=== PATIENT | male | born 1990 | race Caucasian/White ===

== ENCOUNTER 2018-04-12 12:03 | Emergency (ER) | END 2018-04-12 16:34 | disposition home or self-care (01) ==

== ENCOUNTER 2018-11-19 10:04 | Inpatient (IN) | payer OTHER ==
[~2018-11-19] VITALS: Ht 165.1 cm; Wt 71.4 kg
[2018-11-19] VITALS (12 sets, daily range): BP systolic 106–141; BP diastolic 60–82; PULSE 92–99; RESP 12–25; Ht 165.1 cm; Wt 71.4 kg
[~2018-11-19 10:04] MED LIST: HYDR-3980 PO; IBUP800T48 PO
[2018-11-19] MEDS ORDERED: morphine 4 MG/ML VIAL IV STA (12:05)
[2018-11-19] MEDS ORDERED: ONDANSETRON 4 MG INJ IV STA (12:13)
[2018-11-19] MEDS ORDERED: SOD CHLORIDE 0.9% 1,000 ML IV ONE (12:30)
[2018-11-19] MEDS ORDERED: metroNIDAZOLE 500 MG/NS (PMX) 100 ML IVPB ONE (13:00)
[2018-11-19] MEDS ORDERED: CEFTRIAXONE 1 GM/50 ML (PMX) 50 ML IVPB ONE (13:00)
--- NOTE | 2018-11-19 13:44 | ERD ---
ER Documentation Chief Complaint Chief Complaint RLQ abd pain, started today after going to the gym HPI History of Present Illness: 27-year-old male who denies a past medical history coming in today with complaint of right lower quadrant abdominal pain. Patient denies nausea/vomiting. Patient denies fever/chills. Patient reports decreased appetite and weakness. Patient reports he noticed that pain started after going to the gym this morning. Patient reports a bowel movement this morning but reports that the stool was hard and cause pain. Patient denies genitourinary symptoms. Patient is reports difficulty with walking due to pain. Patient that he had a pre-workout drink this morning at approximately 6 AM and that is the only thing that is different with his eating habits. At home pharmacological/nonpharmacological treatment for symptoms: Denies Denies social concerns; Denies recent foreign travel ROS All systems reviewed and are negative except as per history of present illness. Medications Home Meds Active Scripts Hydrocodone/Acetaminophen ([place] 10-325 Tablet) 1 Each Tablet, 1 TAB PO Q6H PRN for PAIN, #20 TAB Prov:LOULOU BENAVIDES PA-C 04/12/18 Ibuprofen* (Motrin*) 800 Mg Tab, 800 MG PO Q6, #30 TAB Prov:LOULOU BENAVIDES PA-C 04/12/18 Allergies Allergies: Coded Allergies: Penicillins (Verified Allergy, Intermediate, 04/12/18) PMhx/Soc Medical and Surgical Hx: pt denies Surgical Hx History of Surgery: No Anesthesia Reaction: No Hx Neurological Disorder: No Hx Respiratory Disorders: No Hx Cardiac Disorders: No Hx Psychiatric Problems: No Hx Miscellaneous Medical Probl: Yes (Chronic back problem) Hx Alcohol Use: Yes Hx Substance Use: Yes (MARIJUANA) Hx Tobacco Use: No Smoking Status: Never smoker FmHx Family History: diabetes; No coronary disease Physical Exam Vitals Vital Signs Date Temp Pulse Resp B/P (MAP) Pulse Ox O2 O2 Flow FiO2 Time Delivery Rate 11/19/18 99.1 97 20 136/72 97 10:41 (93) Physical Exam Const: No acute distress Head: Atraumatic Eyes: Normal Conjunctiva ENT: Normal External Ears, Nose and Mouth. Neck: Full range of motion. No meningismus. Resp: Clear to auscultation bilaterally Cardio: Regular rate and rhythm, no murmurs Abd: Soft, right lower quadrant tenderness, non distended. Normal bowel sounds. Positive McBurney's point. Skin: No petechiae or rashes Back: No midline or flank tenderness Ext: No cyanosis, or edema Neur: Awake and alert Psych: Normal Mood and Affect Result Diagram: 11/19/18 1148 11/19/18 1148 Results 24 hrs Laboratory Tests Test 11/19/18 11:48 White Blood Count 20.0 10^3/ul Red Blood Count 5.77 10^6/ul Hemoglobin 16.3 g/dl Hematocrit 49.1 % Mean Corpuscular Volume 85.1 fl Mean Corpuscular Hemoglobin 28.2 pg Mean Corpuscular Hemoglobin Concent 33.2 g/dl Red Cell Distribution Width 11.8 % Platelet Count 263 10^3/UL Mean Platelet Volume 10.1 fl Immature Granulocytes % 0.400 % Neutrophils % 88.2 % Lymphocytes % 5.4 % Monocytes % 5.8 % Eosinophils % 0.0 % Basophils % 0.2 % Nucleated Red Blood Cells % 0.0 /100WBC Immature Granulocytes # 0.070 10^3/ul Neutrophils # 17.6 10^3/ul Lymphocytes # 1.1 10^3/ul Monocytes # 1.2 10^3/ul Eosinophils # 0.0 10^3/ul Basophils # 0.0 10^3/ul Nucleated Red Blood Cells # 0.0 10^3/ul Urine Color STRAW Urine Clarity CLEAR Urine pH 6.0 Urine Specific [place] 1.017 Urine Ketones 2+ mg/dL Urine Nitrite NEGATIVE mg/dL Urine Bilirubin NEGATIVE mg/dL Urine Urobilinogen NEGATIVE mg/dL Urine Leukocyte Esterase NEGATIVE [place]/ul Urine Hemoglobin NEGATIVE mg/dL Urine Glucose NEGATIVE mg/dL Urine Total Protein NEGATIVE mg/dl Sodium Level 141 mmol/L Potassium Level 3.7 mmol/L Chloride Level 101 mmol/L Carbon Dioxide Level 23 mmol/L Anion Gap 17 Blood Urea Nitrogen 11 mg/dl Creatinine 0.80 mg/dl Est Glomerular Filtrat Rate mL/min > 60 mL/min Glucose Level 75 mg/dl Calcium Level 10.0 mg/dl Total Bilirubin 0.6 mg/dl Direct Bilirubin 0.00 mg/dl Indirect Bilirubin 0.6 mg/dl Aspartate Amino Transf (AST/SGOT) 31 IU/L Alanine Aminotransferase (ALT/SGPT) 34 IU/L Alkaline Phosphatase 86 IU/L Total Protein 8.8 g/dl Albumin 5.3 g/dl Globulin 3.50 g/dl Albumin/Globulin Ratio 1.51 Lipase 189 U/L Current Medications Medications Dose Sig/Lg Start Time Status Last (Trade) Ordered Route PRN Stop Time Admin Dose Reason Admin Sodium 1,000 ml @ Q1H ONCE 11/19/18 DC 11/19/18 Chloride 1,000 mls/hr IV 12:30 12:23 11/19/18 13:29 Morphine 4 mg ONCE STAT 11/19/18 DC 11/19/18 Sulfate IV 12:05 12:23 (morphine) 11/19/18 12:09 Ondansetron 4 mg ONCE STAT 11/19/18 DC 11/19/18 HCl (Zofran IV 12:13 12:23 Inj) 11/19/18 12:15 Ceftriaxone 50 ml @ ONCE ONCE 11/19/18 DC Sodium 100 mls/hr IVPB 13:00 11/19/18 13:29 100 ml @ ONCE ONCE 11/19/18 11/19/18 Metronidazole 100 mls/hr IVPB 13:00 13:22 11/19/18 13:59 Procedures/MDM ED course includes a thorough examination and history. Medications: Imaging: Abdomen KUB Labs: CBC, CMP, lipase, urinalysis ED course @ 1140: Due to low-grade fever and right lower quadrant pain. We will proceed forward with CT abdomen pelvis without contrast To rule out appendicitis. ED course at 1208: Due to leukocytosis and high likelihood of infection, will order IV NS, morphine for pain, Zofran for prophylactic for nausea Otherwise healthy patient presenting with constellation of symptoms likely representing appendicitis as characterized by history, physical exam findings, lab findings, radiology findings. CBC: Positive systemic infection signs, leukocytosis of 20k; No e/o of severe anemia. CMP: no e/o severe acidosis, alkalosis, renal failure, diabetic ketoacidosis, liver disease. Urinalysis negative for infection. Lipase within normal limits. CT abdomen pelvis results showing: IMPRESSION: 1. Acute appendicitis. Evaluation for abscess is limited secondary to absence of IV contrast. No definite abscess is identified. 2. Punctate nonobstructing calculus within the mid pole of the right kidney. RPTAT: .Nadine Rm MD, MD Date Time Electronically viewed and signed by .Nadine Rm MD, MD on 11/19/2018 12:29 Abdomen KUB without any acute findings. Signs of constipation on abdomen KUB. ED physician consultation at [address] TAMAYO: Updated ED attending physician on physical exam, history, lab findings, radiology findings. Agrees with plan of care for admission due to appendicitis. Orders placed by attending ED physician for antibiotics. Attending physician made aware of patient's allergy to penicillin which causes hives and swelling. Awaiting admission. ED attending will speak to admitting doctor/surgeon. Patient reassessment @ 1255: Patient reports decrease in pain after medication administration. No nausea/vomiting. Patient reports eating a boiled egg at approximately 10 AM, last drink during ER triage.Patient hemodynamically stable. No respiratory distress, otherwise relatively well appearing and nontoxic. Disposition given. Departure Diagnosis: Primary Impression: Appendicitis Appendicitis type: acute appendicitis Acute appendicitis type: unspecified acute appendicitis type Qualified Codes: K35.80 - Unspecified acute appendicitis Condition: Serious HERNANDO DONNELLY NP November 19, 2018 13:42
--- NOTE | 2018-11-19 14:46 | CONS ---
Assessment/Plan Assessment/Plan Hospital Course (Demo Recall) 1.Acute appendicitis: -OR -Antibiotics -N.p.o. 2. Abdominal pain: -Pain management 3. Leukocytosis: -As above 4.Right kidney nonobstructing calculus -Monitor Thank you. Patient seen and examined in collaboration with Dr. Tristian Espinosa. Consultation Date/Type/Reason Admit Date/Time Date of Consultation: November 19, 2018 Type of Consult Surgical Reason for Consultation Abdominal pain, concern for appendicitis Requesting Provider: HERNANDO DONNELLY NP Date/Time of Note DATE: 11/19/18 TIME: 14:38 Hx of Present Illness deana Carlos is a 27-year-old man without significant past medical history who presented with complaints of abdominal pain. Abdominal pain was predominantly in the right lower quadrant, dull and strong in nature. No precipitating factors. He does note however that pain has been recurrent that has resolved without intervention, however not to this severity. Associated symptoms include chills. Denies fevers, shortness of breath, chest pain, nausea, vomiting, diarrhea, seizure, rash, trauma to the area, recent sick contacts.CT of the abdomen shows distended appendix with wall hyperemia, periappendiceal inflammatory changes and fat stranding. Laboratory findings significant for leukocytosis. General surgery was asked to evaluate. 12 point review of systems was performed that is negative except as stated in HPI. Past Medical History Medical History: no pertinent history Home Meds Active Scripts Hydrocodone/Acetaminophen ([place] 10-325 Tablet) 1 Each Tablet, 1 TAB PO Q6H PRN for PAIN, #20 TAB Prov:LOULOU BENAVIDES PA-C 04/12/18 Ibuprofen* (Motrin*) 800 Mg Tab, 800 MG PO Q6, #30 TAB Prov:LOULOU BENAVIDES PA-C 04/12/18 Allergies: Coded Allergies: Penicillins (Verified Allergy, Intermediate, 04/12/18) Past Surgical History Past Surgical Hx: no surgical history Family History Significant Family History: no pertinent family hx Social History Alcohol Use: occasionally Smoking Status: Current some day smoker (Cannabis) Exam/Review of Systems Exam Vitals Vital Signs Date Temp Pulse Resp B/P (MAP) Pulse Ox O2 O2 Flow FiO2 Time Delivery Rate 11/19/18 98.4 95 20 114/56 97 Room Air 14:24 (75) Constitutional: alert, oriented Psych: nl mood/affect; No anxiety Head: normocephalic, atraumatic Eyes: nl conjunctiva, EOMI, nl lids, nl sclera ENMT: nl external ears & nose, nl lips & teeth, mucosa pink and moist Neck: supple, non-tender; No jvd Respiratory: normal air movement Cardiovascular: regular rate and rhythm Gastrointestinal: soft, distended (Minimal), tender (Right lower quadrant) Genitourinary - Male: nl penis, nl scrotum Musculoskeletal: nl extremities to inspection, nl gait and stance Extremities: normal pulses Neurological: nl mental status, nl speech, nl strength Skin: No rash or lesions Lymph: nl lymph nodes Results Result Diagram: 11/19/18 1148 11/19/18 1148 Results 24hrs Laboratory Tests Test 11/19/18 11:48 White Blood Count 20.0 H Red Blood Count 5.77 Hemoglobin 16.3 Hematocrit 49.1 Mean Corpuscular Volume 85.1 Mean Corpuscular Hemoglobin 28.2 L Mean Corpuscular Hemoglobin Concent 33.2 Red Cell Distribution Width 11.8 Platelet Count 263 Mean Platelet Volume 10.1 Immature Granulocytes % 0.400 Neutrophils % 88.2 H Lymphocytes % 5.4 L Monocytes % 5.8 Eosinophils % 0.0 Basophils % 0.2 Nucleated Red Blood Cells % 0.0 Immature Granulocytes # 0.070 H Neutrophils # 17.6 H Lymphocytes # 1.1 Monocytes # 1.2 H Eosinophils # 0.0 Basophils # 0.0 Nucleated Red Blood Cells # 0.0 Urine Color STRAW Urine Clarity CLEAR Urine pH 6.0 Urine Specific [place] 1.017 Urine Ketones 2+ H Urine Nitrite NEGATIVE Urine Bilirubin NEGATIVE Urine Urobilinogen NEGATIVE Urine Leukocyte Esterase NEGATIVE Urine Hemoglobin NEGATIVE Urine Glucose NEGATIVE Urine Total Protein NEGATIVE Sodium Level 141 Potassium Level 3.7 Chloride Level 101 Carbon Dioxide Level 23 Anion Gap 17 H Blood Urea Nitrogen 11 Creatinine 0.80 Est Glomerular Filtrat Rate mL/min > 60 Glucose Level 75 Calcium Level 10.0 Total Bilirubin 0.6 Direct Bilirubin 0.00 Indirect Bilirubin 0.6 Aspartate Amino Transf (AST/SGOT) 31 Alanine Aminotransferase (ALT/SGPT) 34 Alkaline Phosphatase 86 Total Protein 8.8 H Albumin 5.3 H Globulin 3.50 H Albumin/Globulin Ratio 1.51 Lipase 189 ANUP SIMON NP November 19, 2018 14:46
--- NOTE | 2018-11-19 15:55 | QN ---
Documentation Comment pt seen and examined MIRIAN BRUCE MD November 19, 2018 15:55
[2018-11-19] MEDS ORDERED: ONDANSETRON 4 MG INJ IV PRN ×2 (16:00→19:30)
[2018-11-19] MEDS: DEXTROSE 5%-0.45% NACL 1,000 ML IV SCH ×2 (16:20→22:40)
--- NOTE | 2018-11-19 19:07 | PREAC ---
Date/Time of Note Date/Time of Note DATE: 11/19/18 TIME: 18:58 Anesthesia Eval and Record Evaluation Time Pre-Procedure Interview DATE: 11/19/18 TIME: 18:58 Age 27 Sex male NPO: 8 hrs Preoperative diagnosis Acute Appendicitis Planned procedure Laparoscopic Appendectomy Past Medical History Past Medical History: Includes Recreational drugs: Marijuana Surgery & Anesthesia Issues No known issue Meds Anticoagulation: No Beta Yadi within 24 hr: No Reason Beta Yadi not given: Pt. not on B-Yadi Discontinued Scripts Hydrocodone/Acetaminophen ([place] 10-325 Tablet) 1 Each Tablet, 1 TAB PO Q6H PRN for PAIN, #20 TAB Prov:LOULOU BENAVIDES PA-C 04/12/18 Ibuprofen* (Motrin*) 800 Mg Tab, 800 MG PO Q6, #30 TAB Prov:LOULOU BENAVIDES PA-C 04/12/18 Current Medications Cefazolin Sodium/ Dextrose 50 ml @ 100 mls/hr Q8 IVPB ; Start 11/19/18 at 22:00 Metronidazole 100 ml @ 100 mls/hr Q8 IVPB ; Start 11/19/18 at 22:00 Dextrose/Sodium Chloride 1,000 ml @ 100 mls/hr Q10H IV Last administered on 11/19/18at 16:20; Admin Dose 100 MLS/HR; Start 11/19/18 at 16:00 Ondansetron HCl (Zofran Inj) 4 mg Q6H PRN IV NAUSEA/VOMITING; Start 11/19/18 at 16:00 Acetaminophen (Tylenol Tab) 650 mg Q6H PRN PO .PAIN 1-3 OR TEMP; Start 11/19/18 at 16:00 Morphine Sulfate (morphine) 2 mg Q4H PRN IV .SEVERE PAIN 7-10; Start 11/19/18 at 16:00 Pantoprazole (Protonix Iv) 40 mg DAILY@06 IV ; Start 11/20/18 at 06:00 Meds reviewed: Yes Allergies Coded Allergies: Penicillins (Verified Allergy, Intermediate, 11/19/18) Allergies Reviewed: Yes Labs/Studies Labs Reviewed: Reviewed by anesthesiologist Result Diagram: 11/19/18 1148 11/19/18 1148 Laboratory Tests 11/19/18 11:48 test: N/A Studies: ECG (n/a), CXR (n/a) Pre-procedure Exam Last vitals Vital Signs Date Temp Pulse Resp B/P (MAP) Pulse Ox O2 O2 Flow FiO2 Time Delivery Rate 11/19/18 98.4 95 20 114/56 97 Room Air 14:24 (75) Airway: Adequate mouth opening, Adequate thyromental dist Mallampati: Mallampati II Teeth: Normal Lung: Normal Heart: Normal ASA Physical Status ASA physical status: 2 Emergency: None Planned Anesthetic General/MAC: ETT Nerve block: TAP (bilateral) Planned Pain Management Single shot nerve block, Parenteral pain med Pre-operative Attestations Prior to commencing anesthesia and surgery, the patient was re-evaluated, there was verification of: *The patient's identity *The results of appropriate recent lab work and preoperative vital signs *The above evaluation not changing prior to induction *Anesthetic plan, risk benefits, alternative and complications discussed with patient/family; questions answered; patient/family understands, accepts and wishes to proceed. MIKHAIL TORRES MD November 19, 2018 19:07
[2018-11-19] MEDS ORDERED: PROPOFOL 20 ML ONE (19:26)
[2018-11-19] MEDS ORDERED: CEFAZOLIN 1 GM INJ ONE (19:26)
[2018-11-19] MEDS ORDERED: ROCURONIUM 50 MG INJ ONE (19:26)
[2018-11-19] MEDS ORDERED: FENTAnyl 50 MCG/ML VIAL ONE (19:27)
[2018-11-19] MEDS ORDERED: ROPIVACAINE 0.5 % 30 ML VIAL ONE (19:27)
[2018-11-19] MEDS ORDERED: MIDAZOLAM 1 MG/ML 2 ML INJ ONE (19:27)
[2018-11-19] MEDS ORDERED: ROPIVACAINE 0.2% 20 ML VIAL ONE (19:27)
[2018-11-19] MEDS ORDERED: DIPHENHYDRAMINE 50 MG INJ IV PRN (19:30)
[2018-11-19] MEDS ORDERED: FENTAnyl 50 MCG/ML VIAL IV PRN ×3 (19:30)
[2018-11-19] MEDS ORDERED: METOCLOPRAMIDE 10 MG INJ IV PRN (19:30)
[2018-11-19] MEDS ORDERED: EPHEDrine 25 MG/5 ML SYG IV PRN (19:30)
[2018-11-19] MEDS ORDERED: HYDROmorphONE 1 MG/5 ML IV SYRINGE IV PRN ×3 (19:30)
[2018-11-19] MEDS ORDERED: OXYCODONE/ACETAMINOPHEN (5/325) TAB PO PRN (19:30)
[2018-11-19] MEDS ORDERED: LABETALOL HCL 20MG INJ IV PRN (19:30)
[2018-11-19] MEDS ORDERED: MEPERIDINE 25 MG INJ IV PRN (19:30)
--- NOTE | 2018-11-19 19:59 | HP ---
DATE OF ADMISSION: 11/19/2018 REASON FOR ADMISSION: Abdominal pain. HISTORY OF PRESENTING ILLNESS: This is a 27-year-old man with no significant past medical history, w ho presented to the emergency department complaining of acute onset of right lower quadrant pain. Ac cording to the patient, he was not feeling usually his self; however, he went to gym in the morning, all of a sudden he started having pain in the right lower quadrant. The pain was getting severe and came to the emergency department. According to the patient, he has similar pain a few months ago. H e also complained of some chills. Denied any nausea, vomiting. The patient has been having poor debbie etite. Denied any diarrhea, any hematemesis, any melena, any blood per rectum. On arrival to ED, vi rashid signs showed blood pressure 114/56, afebrile, heart rate 95, respirations 20, saturating 97%. Wh ite count was 20.0, hemoglobin 16.3, platelet count 263. UA was negative. BMP within normal limit. The patient had abdominal x-ray that showed unremarkable. The patient had a CT of the abdomen and p molina that showed acute appendicitis IV contrast. Punctured nonobstructing calculus mid pole o f the right kidney and the patient received Rocephin, Flagyl, NS, and Zofran and was admitted for fur ther management. Dr. Espinosa has been called for surgery. PAST MEDICAL HISTORY: None. ALLERGIES: PENICILLINS. SOCIAL HISTORY: Occasionally uses marijuana and occasionally drinks alcohol. Denies smoking. FAMILY HISTORY: diabetes. No coronary artery disease. MEDICATIONS TAKING AT HOME: None. REVIEW OF SYSTEMS: The patient complained of right lower quadrant pain, decreased appetite, similar symptoms in the past. Denied any nausea, vomiting, diarrhea, hematemesis, any melena, any blood per rectum. Denies any focal neurological deficits. Denies any chest pain, any shortness of breath. PHYSICAL EXAMINATION: VITAL SIGNS: Currently, blood pressure 114/56, afebrile, heart rate 95, respirations 20, saturating 97%. GENERAL: The patient is awake, alert, oriented, does not appear to be in acute distress. HEENT: Pupils equal, round, reactive to light. NECK: Supple, no JVD. HEART: Regular rate and rhythm. LUNGS: Clear to auscultate bilaterally. ABDOMEN: Tenderness present. Negative McBurney's point. No peritoneal signs. EXTREMITIES: No clubbing, cyanosis, or edema. DIAGNOSTIC DATA: White count 20.0. BUN and creatinine within normal limit. CT of the abdomen and p molina, acute appendicitis. ASSESSMENT: This is a 27-year-old male, who presented with: 1. Right lower quadrant pain secondary to acute appendicitis. 2. Leukocytosis secondary to #1. 3. Right kidney, nonobstructing calculus. UA is negative. PLAN: At this period of time, the patient is kept n.p.o., started on IV fluids. The patient will be started on IV Ancef and Flagyl. The patient is going to OR per surgery. Rest of the treatment will depend on the patient's hospitalization course. Dictated By: MIRIAN WARD/ANNI Conf#: [id number] DID#: [id number]
[2018-11-19] MEDS ORDERED: BUPIVACAINE 0.25%/EPI (SDV) 30 ML INJ ONE (20:15)
[2018-11-19] MEDS ORDERED: LIDOCAINE 1% (MPF) 30 ML INJ ONE (20:15)
[2018-11-19] MEDS ORDERED: ONDANSETRON 4 MG INJ ONE (21:06)
[2018-11-19] MEDS ORDERED: METOCLOPRAMIDE 10 MG INJ ONE (21:06)
[2018-11-19] MEDS ORDERED: SUGAMMADEX SODIUM 200 MG/2 ML VIAL IV ONE (21:06)
[2018-11-19] MEDS ORDERED: DEXAMETHASONE 4 MG/ML 5 ML INJ ONE (21:06)
[2018-11-19] MEDS ORDERED: KETOROLAC 30 MG INJ ONE (21:06)
--- NOTE | 2018-11-19 21:16 | OPR ---
Date/Time of Note Date/Time of Note DATE: 11/19/18 TIME: 21:14 Operative Report Free Text/Dictation Preoperative Diagnosis 1. Acute appendicitis Postoperative Diagnosis 1. Acute appendicitis 2. Bilateral inguinal hernias Operation Performed 1. Laparoscopic appendectomy 2. Local anesthetic injection, [id number] Surgeon: SHANTI GARG MD Anesthesia: general (Plus local plus regional) Anesthesiologist: Enoc Wheeler MD Estimated Blood Loss: Less than 5 ml's Specimens: Appendix Tubes/Drains None Complications: None Pt Condition Post Procedure: stable Disposition: PACU Indications: Per consult note. Risks include but are not limited to bleeding, infection, abscess, seroma, leak, damage to intestines or any intra-abdominal/intrapelvic structures, hernia formation, chronic pain, need for re-operations or further surgeries, VT, stroke, PE, DVT, pneumonia, organ failures, or even . Procedure Note: Patient was brought into the operating room, placed supine on the operating table, SCDs were placed, left arm was tucked, all pressure points were well- padded, preoperative antibiotics administered, and after induction of anesthesia, patient was prepped and draped in usual sterile fashion, and timeout was performed. Incision was made supraumbilically and the Veress needle was safely place into the abdomen. After negative sip test, abdomen was insufflated to 15 mmHg with CO2. At this point Veress was removed and the 5 mm blunt trocar was placed into the abdomen. Laparoscopy was performed and no injuries were identified using a 5 mm 30 scope. Under direct visualization another 5 mm port was placed and left lower quadrant and 12 mm port and suprapubic region avoiding the bladder. All incision sites were injected with quarter percent Marcaine with 1% lidocaine with epi. Patient was placed in Trendelenburg and right side up. There is bilateral inguinal hernias. The appendix was found to be inflamed without evidence of perforation. The base was transected using Endo JOSE white load automatic 35 mm stapler just on the cecum. The fanny were fired fully. The mesoappendix was transected with another white load stapler. Hemostasis was fully obtained. The appendix was placed in an Endo Catch bag and removed through the suprapubic port site. That fascia was closed with Endo Close and 0 Vicryl in a [id number] manner avoiding the bladder. Ports and CO2 were removed under direct visualization, wounds were fully irrigated, and skin was closed in subcuticular fashion using 4-0 Monocryl. Dermabond was applied. All counts were correct and the end of the operation 2. Patient was extubated and transferred to recovery room in stable condition. SHANTI GARG MD November 19, 2018 21:16
--- NOTE | 2018-11-19 21:22 | PAC ---
Date/Time of Note Date/Time of Note DATE: 11/19/18 TIME: 21:22 Post-Anesthesia Notes Post-Anesthesia Note Last documented vital signs Vital Signs Date Temp Pulse Resp B/P (MAP) Pulse Ox O2 O2 Flow FiO2 Time Delivery Rate 11/19/18 98.7 95 20 114/56 97 Room Air 21:24 (75) Activity: WNL Respiratory function: WNL Cardiovascular function: WNL Mental status: Baseline Pain reasonably controlled: Yes Hydration appropriate: Yes Nausea/Vomiting absent: Yes MIKHAIL TORRES MD November 19, 2018 21:22
[2018-11-19] MEDS ORDERED: CEFAZOLIN 2 GM/50 ML (PMX) 50 ML IVPB SCH (22:00)
[2018-11-19] MEDS ORDERED: metroNIDAZOLE 500 MG/NS (PMX) 100 ML IVPB SCH (22:00)
[2018-11-19] MEDS: morphine 2 MG INJ IV PRN (23:39)
[2018-11-20 02:00] VITALS: BP 118/65; PULSE 83; RESP 20
[2018-11-20] MEDS: DEXTROSE 5%-0.45% NACL 1,000 ML IV SCH ×2 (02:00→09:23)
[2018-11-20] MEDS: morphine 2 MG INJ IV PRN (04:44)
[2018-11-20] MEDS ORDERED: PANTOPRAZOLE 40 MG INJ IV SCH (06:00)
[2018-11-20 07:42] VITALS: BP 120/68; PULSE 82; RESP 18
--- NOTE | 2018-11-20 09:57 | PN ---
Date/Time of Note Date/Time of Note DATE: 11/20/18 TIME: 09:56 Assessment/Plan VTE Prophylaxis SCD applied (from Nsg): Yes Pharmacological prophylaxis: NA/contraindicated Pharm contraindication: surgical contra Lines/Catheters IV C[facility] ([facility] Peripheral IV Assessment/Plan Hospital Course 1. Acute appendicitis. S/p appendectomy 11/19/2018 2. Leukocytosis secondary to #1, decreased 3. Right kidney, nonobstructing calculus. UA is negative. 4. Post op Bilateral inguinal hernias 5. Hyperkalemia Assessment/Plan medsurg -check K today, 4.4 no treatment necessary -c/w IV fluids. -c/w IV Ancef and Flagyl. dvt proph Ambulation and SCD -GI proph protonix -IS -ambulate -clear liq. diet per surgery dr Espinosa team Result Diagram: 11/20/186 11/20/186 Results 24hrs Laboratory Tests Test 11/19/18 11:48 11/19/18 15:45 11/20/18 04:36 White Blood Count 20.0 H 13.9 #H Red Blood Count 5.77 4.50 #L Hemoglobin 16.3 13.0 #L Hematocrit 49.1 39.2 #L Mean Corpuscular Volume 85.1 87.1 Mean Corpuscular Hemoglobin 28.2 L 28.9 L Mean Corpuscular Hemoglobin Concent 33.2 33.2 Red Cell Distribution Width 11.8 12.2 Platelet Count 263 262 Mean Platelet Volume 10.1 10.5 H Immature Granulocytes % 0.400 0.400 Neutrophils % 88.2 H 93.9 H Lymphocytes % 5.4 L 4.3 L Monocytes % 5.8 1.3 Eosinophils % 0.0 0.0 Basophils % 0.2 0.1 Nucleated Red Blood Cells % 0.0 0.0 Immature Granulocytes # 0.070 H 0.050 H Neutrophils # 17.6 H 13.1 H Lymphocytes # 1.1 0.6 L Monocytes # 1.2 H 0.2 L Eosinophils # 0.0 0.0 Basophils # 0.0 0.0 Nucleated Red Blood Cells # 0.0 0.0 Urine Color STRAW Urine Clarity CLEAR Urine pH 6.0 Urine Specific [place] 1.017 Urine Ketones 2+ H Urine Nitrite NEGATIVE Urine Bilirubin NEGATIVE Urine Urobilinogen NEGATIVE Urine Leukocyte Esterase NEGATIVE Urine Hemoglobin NEGATIVE Urine Glucose NEGATIVE Urine Total Protein NEGATIVE Sodium Level 141 136 Potassium Level 3.7 5.3 H Chloride Level 101 101 Carbon Dioxide Level 23 27 Anion Gap 17 H 8 # Blood Urea Nitrogen 11 9 Creatinine 0.80 0.77 Est Glomerular Filtrat Rate mL/min > 60 > 60 Glucose Level 75 162 Calcium Level 10.0 8.7 Total Bilirubin 0.6 Direct Bilirubin 0.00 Indirect Bilirubin 0.6 Aspartate Amino Transf (AST/SGOT) 31 Alanine Aminotransferase (ALT/SGPT) 34 Alkaline Phosphatase 86 Total Protein 8.8 H Albumin 5.3 H Globulin 3.50 H Albumin/Globulin Ratio 1.51 Lipase 189 Prothrombin Time 12.6 Prothrombin Time Ratio 1.0 INR International Normalized Ratio 0.93 Phosphorus Level 4.3 Magnesium Level 2.0 Subjective 24 Hr Interval Summary Gastrointestinal: pain Exam/Review of Systems Exam Vitals Vital Signs Date Temp Pulse Resp B/P (MAP) Pulse Ox O2 O2 Flow FiO2 Time Delivery Rate 11/20/18 98.5 82 18 120/68 96 Room Air 07:42 (85) 11/19/18 2.0 22:25 Intake and Output 11/19/18 11/19/18 11/20/18 1414:59 22:59 06:59 IntakeIntake Total 1100 ml 1350 ml 625 ml OutputOutput Total 10 ml 450 ml BalanceBalance 1100 ml 1340 ml 175 ml Constitutional: alert, oriented Respiratory: diminished breath sounds Cardiovascular: regular rate and rhythm Gastrointestinal: bowel sounds; No nl liver, spleen, No non-tender, No ascites, No distended, No firm, No hepatomegaly, No mass, No splenomegaly, No tender, No other Results Results 24hrs Laboratory Tests Test 11/19/18 11:48 11/19/18 15:45 11/20/18 04:36 White Blood Count 20.0 H 13.9 #H Red Blood Count 5.77 4.50 #L Hemoglobin 16.3 13.0 #L Hematocrit 49.1 39.2 #L Mean Corpuscular Volume 85.1 87.1 Mean Corpuscular Hemoglobin 28.2 L 28.9 L Mean Corpuscular Hemoglobin Concent 33.2 33.2 Red Cell Distribution Width 11.8 12.2 Platelet Count 263 262 Mean Platelet Volume 10.1 10.5 H Immature Granulocytes % 0.400 0.400 Neutrophils % 88.2 H 93.9 H Lymphocytes % 5.4 L 4.3 L Monocytes % 5.8 1.3 Eosinophils % 0.0 0.0 Basophils % 0.2 0.1 Nucleated Red Blood Cells % 0.0 0.0 Immature Granulocytes # 0.070 H 0.050 H Neutrophils # 17.6 H 13.1 H Lymphocytes # 1.1 0.6 L Monocytes # 1.2 H 0.2 L Eosinophils # 0.0 0.0 Basophils # 0.0 0.0 Nucleated Red Blood Cells # 0.0 0.0 Urine Color STRAW Urine Clarity CLEAR Urine pH 6.0 Urine Specific [place] 1.017 Urine Ketones 2+ H Urine Nitrite NEGATIVE Urine Bilirubin NEGATIVE Urine Urobilinogen NEGATIVE Urine Leukocyte Esterase NEGATIVE Urine Hemoglobin NEGATIVE Urine Glucose NEGATIVE Urine Total Protein NEGATIVE Sodium Level 141 136 Potassium Level 3.7 5.3 H Chloride Level 101 101 Carbon Dioxide Level 23 27 Anion Gap 17 H 8 # Blood Urea Nitrogen 11 9 Creatinine 0.80 0.77 Est Glomerular Filtrat Rate mL/min > 60 > 60 Glucose Level 75 162 Calcium Level 10.0 8.7 Total Bilirubin 0.6 Direct Bilirubin 0.00 Indirect Bilirubin 0.6 Aspartate Amino Transf (AST/SGOT) 31 Alanine Aminotransferase (ALT/SGPT) 34 Alkaline Phosphatase 86 Total Protein 8.8 H Albumin 5.3 H Globulin 3.50 H Albumin/Globulin Ratio 1.51 Lipase 189 Prothrombin Time 12.6 Prothrombin Time Ratio 1.0 INR International Normalized Ratio 0.93 Phosphorus Level 4.3 Magnesium Level 2.0 Medications Medication Current Medications Dextrose/Sodium Chloride 1,000 ml @ 100 mls/hr Q10H IV Last administered on 11/20/18at 09:23; Admin Dose 100 MLS/HR; Start 11/19/18 at 16:00 Ondansetron HCl (Zofran Inj) 4 mg Q6H PRN IV NAUSEA/VOMITING Last administered on 11/19/18at 23:38; Admin Dose 4 MG; Start 11/19/18 at 16:00 Acetaminophen (Tylenol Tab) 650 mg Q6H PRN PO .PAIN 1-3 OR TEMP; Start 11/19/18 at 16:00 Morphine Sulfate (morphine) 2 mg Q4H PRN IV .SEVERE PAIN 7-10 Last administered on 11/20/18at 04:44; Admin Dose 2 MG; Start 11/19/18 at 16:00 Pantoprazole (Protonix Iv) 40 mg DAILY@06 IV Last administered on 11/20/18at 06:15; Admin Dose 40 MG; Start 11/20/18 at 06:00 OSCAR WOOD November 20, 2018 09:57
[2018-11-20] MEDS: ACETAMINOPHEN 325 MG TAB PO PRN (11:39)
--- NOTE | 2018-11-20 13:52 | PN ---
Date/Time of Note Date/Time of Note DATE: 11/20/18 TIME: 13:49 Assessment/Plan Lines/Catheters IV Catheter Type (from Nrs): Peripheral IV Assessment/Plan Chief Complaint/Hosp Course 1.Acute appendicitis: sp lap appy -IS -ambulate -ice pack to abdominal wall -advance diet as tolerated -Continue antibiotics 2. Abdominal pain: -Pain management 3. Leukocytosis: Improving -As above 4.Right kidney nonobstructing calculus -Monitor Thank you. Patient seen and examined in collaboration with Dr. Tristian Espinosa. Subjective 24 Hr Interval Summary sp lap appy. No fevers, chills, sob, congested cough, cp, palpitations, torres, dizziness, n/v/d/dysuria. Exam/Review of Systems Vital Signs Vitals Vital Signs Date Temp Pulse Resp B/P (MAP) Pulse Ox O2 O2 Flow FiO2 Time Delivery Rate 11/20/18 98.5 82 18 120/68 96 Room Air 07:42 (85) 11/19/18 2.0 22:25 Intake and Output 11/19/18 11/19/18 11/20/18 1515:00 23:00 07:00 IntakeIntake Total 1100 ml 1350 ml 625 ml OutputOutput Total 10 ml 450 ml BalanceBalance 1100 ml 1340 ml 175 ml Exam Free Text/Dictation Constitutional: alert, oriented Psych: nl mood/affect; No anxiety Head: normocephalic, atraumatic Eyes: nl conjunctiva, EOMI, nl lids, nl sclera ENMT: nl external ears & nose, nl lips & teeth, mucosa pink and moist Neck: supple, non-tender; No jvd Respiratory: normal air movement Cardiovascular: regular rate and rhythm Gastrointestinal: soft, distended (Minimal), tender (Right lower quadrant) Genitourinary - Male: nl penis, nl scrotum Musculoskeletal: nl extremities to inspection, nl gait and stance Extremities: normal pulses Neurological: nl mental status, nl speech, nl strength Skin: No rash or lesions Lymph: nl lymph nodes Results Result Diagram: 11/20/18 0436 11/20/18 1008 ANUP SIMON NP November 20, 2018 13:52
[2018-11-20 14:55] VITALS: BP 134/71; PULSE 85; RESP 18
[2018-11-20 20:00] VITALS: BP 102/57; PULSE 86; RESP 19
--- NOTE | 2018-11-20 21:48 | RADRPT ---
Vent Rate: 76 bpm RR Interval: 784 msec GA Interval: 145 msec QRS Duration: 99 msec QT Interval: 357 msec QTC Interval: 403 msec P-R-T [place]: 26 - 78 - 45 degrees Sinus rhythm...normal P axis, V-rate 50- 99 ST elevation suggests acute pericarditis...ST >0.10mV, ant/lat/inf Electronically Signed By: Phan Hooks
[2018-11-21 02:12] VITALS: BP 104/68; PULSE 85; RESP 18
[2018-11-21] MEDS: ACETAMINOPHEN 325 MG TAB PO PRN (02:52)
[2018-11-21] MEDS: DEXTROSE 5%-0.45% NACL 1,000 ML IV SCH ×2 (03:51→09:26)
[2018-11-21] MEDS: PANTOPRAZOLE (EC) 40 MG TAB PO SCH ×2 (05:37→09:26)
[2018-11-21 07:57] VITALS: BP 100/59; PULSE 86; RESP 18
--- NOTE | 2018-11-21 10:37 | PDOCDIS ---
Discharge Instructions DIAGNOSIS Discharge Diagnosis s/p appendectomy CONDITION [id number] Patient Condition: [id number] Stable HOME CARE INSTRUCTIONS: Rypye6Mg Diet Instructions: Gwriu3m Regular ACTIVITY: [id number] Activity Restrictions: [id number] Rest between Activity Avoid heavy lifting Do not Drive Do not operate Power Tool [id number] Bathing Restrictions: [id number] Sponge Bath FOLLOW UP/APPOINTMENTS Follow-up Plan PCP 1 week OSCAR WOOD November 21, 2018 10:37
--- NOTE | 2018-11-21 10:37 | DS ---
Date/Time of Note Date/Time of Note DATE: 11/21/18 TIME: 10:37 Discharge Summary Admission/Discharge Info Admit Date/Time November 19, 2018 at 13:09 Discharge Date/Time Discharge Diagnosis s/p appendectomy Patient Condition: Stable Consults Dr. espinosa, surgeon Procedures appendectomy Hospital Course HISTORY OF PRESENTING ILLNESS: This is a 27-year-old man with no significant past medical history, who presented to the emergency department complaining of acute onset of right lower quadrant pain. According to the patient, he was not feeling usually his self; however, he went to gym in the morning, all of a sudden he started having pain in the right lower quadrant. The pain was getting severe and came to the emergency department. According to the patient, he has similar pain a few months ago. He also complained of some chills. Denied any nausea, vomiting. The patient has been having poor appetite. Denied any diarrhea, any hematemesis, any melena, any blood per rectum. On arrival to ED, vital signs showed blood pressure 114/56, afebrile, heart rate 95, respirations 20, saturating 97%. White count was 20.0, hemoglobin 16.3, platelet count 263. UA was negative. BMP within normal limit. The patient had abdominal x-ray that showed unremarkable. The patient had a CT of the abdomen and pelvis that showed acute appendicitis. Punctured nonobstructing calculus mid pole of the right kidney and the patient received Rocephin, Flagyl, NS, and Zofran and was admitted for further management. Dr. Espinosa has been called for surgery. PAST MEDICAL HISTORY: None. ALLERGIES: PENICILLINS. SOCIAL HISTORY: Occasionally uses marijuana and occasionally drinks alcohol. Denies smoking. FAMILY HISTORY: diabetes. No coronary artery disease. MEDICATIONS TAKING AT HOME: None. REVIEW OF SYSTEMS: The patient complained of right lower quadrant pain, decreased appetite, similar symptoms in the past. Denied any nausea, vomiting, diarrhea, hematemesis, any melena, any blood per rectum. Denies any focal neurological deficits. Denies any chest pain, any shortness of breath. PHYSICAL EXAMINATION: VITAL SIGNS: Currently, blood pressure 114/56, afebrile, heart rate 95, respirations 20, saturating 97%. GENERAL: The patient is awake, alert, oriented, does not appear to be in acute distress. HEENT: Pupils equal, round, reactive to light. NECK: Supple, no JVD. HEART: Regular rate and rhythm. LUNGS: Clear to auscultate bilaterally. ABDOMEN: Tenderness present. Negative McBurney's point. No peritoneal signs. EXTREMITIES: No clubbing, cyanosis, or edema. DIAGNOSTIC DATA: White count 20.0. BUN and creatinine within normal limit. CT of the abdomen and pelvis, acute appendicitis. Dx: 1. Acute appendicitis. S/p appendectomy 11/19/2018 2. Leukocytosis secondary to #1, decreased 3. Right kidney, nonobstructing calculus. UA is negative. 4. Post op Bilateral inguinal hernias 5. Hyperkalemia During hospitalization pt was in medsurg unit. While he was NPO we had IV fluids. He was given a course of IV Ancef and Flagyl. Pt had an appendectomy on 11/19/2018 and after that his pain was controlled. Dr Salas surgeon performed appendectomy. we followed all his orders. We place pt for IS and asked him ambulate as tolerated. He tolerated clear liquid diet and was advanced to soft. Pt is improved and was able to ambulate and tolerate the diet. Home Meds Discontinued Scripts Hydrocodone/Acetaminophen ([place] 10-325 Tablet) 1 Each Tablet, 1 TAB PO Q6H PRN for PAIN, #20 TAB Prov:LOULOU BENAVIDES PA-C 04/12/18 Ibuprofen* (Motrin*) 800 Mg Tab, 800 MG PO Q6, #30 TAB Prov:LOULOU BENAVIDES PA-C 04/12/18 Follow-up Plan PCP 1 week Primary Care Provider Not On Staff Doctor Time spent on discharge: < 30 minutes Pending Labs Laboratory Tests Test 11/21/18 04:42 White Blood Count 11.7 10^3/ul (4.8-10.8) Red Blood Count 3.63 10^6/ul (4.70-6.10) Hemoglobin 10.4 g/dl (14.0-18.0) Hematocrit 31.1 % (42.0-52.0) Mean Corpuscular Volume 85.7 fl (82.0-101.0) Mean Corpuscular Hemoglobin 28.7 pg (29.0-33.0) Mean Corpuscular Hemoglobin Concent 33.4 g/dl (32.0-37.0) Red Cell Distribution Width 12.2 % (11.5-14.5) Platelet Count 216 10^3/UL (140-415) Mean Platelet Volume 10.5 fl (7.4-10.4) Immature Granulocytes % 0.300 % (0.001-0.429) Neutrophils % 73.0 % (39.0-77.0) Lymphocytes % 18.6 % (15.0-51.0) Monocytes % 7.7 % (0.0-11.0) Eosinophils % 0.3 % (0.0-7.0) Basophils % 0.1 % (0.0-2.0) Nucleated Red Blood Cells % 0.0 /100WBC (0.0-0.0) Immature Granulocytes # 0.040 10^3/ul (0.0-0.031) Neutrophils # 8.5 10^3/ul (1.6-7.5) Lymphocytes # 2.2 10^3/ul (0.8-2.9) Monocytes # 0.9 10^3/ul (0.3-0.9) Eosinophils # 0.0 10^3/ul (0.0-0.5) Basophils # 0.0 10^3/ul (0.0-0.1) Nucleated Red Blood Cells # 0.0 10^3/ul (0.0-0.0) Sodium Level 140 mmol/L (135-144) Potassium Level 3.6 mmol/L (3.5-5.1) Chloride Level 106 mmol/L (97-110) Carbon Dioxide Level 28 mmol/L (21-31) Anion Gap 6 (5-13) Blood Urea Nitrogen 10 mg/dl (7-20) Creatinine 0.70 mg/dl (0.61-1.24) Est Glomerular Filtrat Rate mL/min > 60 mL/min (>60) Glucose Level 113 mg/dl (70-220) Hemoglobin A1c 5.0 % (0-5.9) Calcium Level 8.5 mg/dl (8.4-10.2) OSCAR WOOD November 21, 2018 10:37
[2018-11-21 14:13] VITALS: BP 112/66; PULSE 65; RESP 19
--- NOTE | 2018-11-21 14:54 | PN ---
Date/Time of Note Date/Time of Note DATE: 11/21/18 TIME: 14:53 Assessment/Plan Lines/Catheters IV [facility]from [facility]): Saline Lock Assessment/Plan Chief Complaint/Hosp Course 1.Acute appendicitis: sp lap appy -IS -ambulate -ice pack to abdominal wall -advance diet as tolerated -Continue antibiotics -dc home per medical team 2. Abdominal pain: improved -Pain management 3. Leukocytosis: Improving -As above 4.Right kidney nonobstructing calculus -Monitor Thank you. Patient seen and examined in collaboration with Dr. Tristian Espinosa. Subjective 24 Hr Interval Summary Feels well. No fevers, chills, sob, congested cough, cp, palpitations, torres, dizziness, n/v/d/dysuria. Exam/Review of Systems Vital Signs Vitals Vital Signs Date Temp Pulse Resp B/P (MAP) Pulse Ox O2 O2 Flow FiO2 Time Delivery Rate 11/21/18 98.2 65 19 112/66 99 Room Air 14:13 (81) 11/19/18 2.0 22:25 Intake and Output 11/20/18 11/20/18 11/21/18 1515:00 23:00 07:00 IntakeIntake Total 2200 ml 710 ml 550 ml OutputOutput Total 2025 ml 1050 ml 375 ml BalanceBalance 175 ml -340 ml 175 ml Exam Free Text/Dictation Constitutional: alert, oriented Psych: nl mood/affect; No anxiety Head: normocephalic, atraumatic Eyes: nl conjunctiva, EOMI, nl lids, nl sclera ENMT: nl external ears & nose, nl lips & teeth, mucosa pink and moist Neck: supple, non-tender; No jvd Respiratory: normal air movement Cardiovascular: regular rate and rhythm Gastrointestinal: soft, distended (Minimal), tender (Right lower quadrant) Genitourinary - Male: nl penis, nl scrotum Musculoskeletal: nl extremities to inspection, nl gait and stance Extremities: normal pulses Neurological: nl mental status, nl speech, nl strength Skin: No rash or lesions Lymph: nl lymph nodes Results Result Diagram: 11/21/18 0442 11/21/18 0442 ANUP SIMON NP November 21, 2018 14:54
== END 2018-11-21 14:15 | disposition home or self-care (01) | DRG 343 ==
LOC: FTE 10:04 → REC 13:09 → 2NE 22:20
PROVIDERS: ADMIT Internal Medicine; ATTEND Internal Medicine
PROC: 0DTJ4ZZ Resection of Appendix, Percutaneous Endoscopic Approach (ICD-10-PCS; principal; 2018-11-19 18:30)
DX: K35.80 Unspecified acute appendicitis (principal); E87.5 Hyperkalemia; N20.0 Calculus of kidney; K40.20 Bilateral inguinal hernia, without obstruction or gangrene, not specified as recurrent
CPT/HCPCS: 71045; 74019; 74176; 80048; 80053; 81003; 83036; 83690; 83735; 84100; 84132; 85025; 85610; 88304; 93005; C9113; J0690; J0696; J1100; J1170; J1885; J2250; J2270; J2405; J2765; J2795; J3010; J7030; J7042